=== PATIENT | male | born 1960 | race Two or more races ===

== ENCOUNTER 2018-11-17 17:39 | Emergency (ER) | payer MEDICAID, OTHER ==
[~2018-11-17] VITALS: Ht 170.2 cm; Wt 85.3 kg
[2018-11-17 17:56] VITALS: BP 130/86
[2018-11-17] MEDS ORDERED: LIDOCAINE W/ EPINEPHRINE 2% INJ 20ML VIAL IJ ONE (19:00)
[2018-11-17] MEDS ORDERED: TETANUS-DIPTH-ACEL PERTUSSIS 0.5ML SYRG IM ONE (19:00)
[2018-11-17] MEDS ORDERED: cefTRIAXone SOD 1,000 MG VL IM ONE (19:00)
== END 2018-11-17 19:32 | disposition home or self-care (01) ==
LOC: ER 17:39
DX: S81.011A Laceration without foreign body, right knee, initial encounter (principal); W26.0XXA Contact with knife, initial encounter; Y93.89 Activity, other specified; Y99.8 Other external cause status; Y92.89 Other specified places as the place of occurrence of the external cause
CPT/HCPCS: 12004; 90471; 90715; 96372; 99283; J0696

== ENCOUNTER 2018-12-07 11:26 | Emergency (ER) | payer MEDICAID ==
[~2018-12-07] VITALS: Ht 172.7 cm; Wt 85.3 kg
[2018-12-07 12:18] VITALS: BP 148/89
== END 2018-12-07 12:33 | disposition home or self-care (01) ==
LOC: ER 11:28
DX: S71.111D Laceration without foreign body, right thigh, subsequent encounter (principal); Z48.02 Encounter for removal of sutures; X58.XXXD Exposure to other specified factors, subsequent encounter

== ENCOUNTER → 2023-11-04 | Outpatient (CLI) | payer MEDICAID ==
[~2023-11-04] VITALS: Ht 170.2 cm; Wt 87.1 kg
[2023-11-04] MEDS: ADENOSINE 73 MG in GIVE UN-DILUTED 0 ML IV ONE (09:10)
== END | disposition home or self-care (01) ==
LOC: XY 07:07
PROVIDERS: ATTEND Internal Medicine
DX: Z01.810 Encounter for preprocedural cardiovascular examination (principal); I10 Essential (primary) hypertension; R07.9 Chest pain, unspecified
CPT/HCPCS: 78452; 93017; A9500; J0153

== ENCOUNTER 2024-11-29 17:30 | Emergency (ER) | payer MEDICAID ==
[~2024-11-29] VITALS: Ht 170.2 cm; Wt 87.5 kg
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
[2024-11-29] MEDS: KETOROLAC TROMETH 60MG/2ML VIAL IM ONE (18:56)
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
[2024-11-29] MEDS ORDERED: METH-1181 PO (19:30)
[2024-11-29] MEDS ORDERED: METH4PAK PO (19:30)
[2024-11-29 20:10] VITALS: BP 151/71; PULSE 77; RESP 18; TEMP 98.3; O2SAT 96
== END 2024-11-29 20:13 | disposition home or self-care (01) ==
LOC: ER 17:30
DX: S13.4XXA Sprain of ligaments of cervical spine, initial encounter (principal); R93.89 Abnormal findings on diagnostic imaging of other specified body structures; Z79.899 Other long term (current) drug therapy; V89.2XXA Person injured in unspecified motor-vehicle accident, traffic, initial encounter; Y93.89 Activity, other specified; Y92.488 Other paved roadways as the place of occurrence of the external cause; Y99.8 Other external cause status
CPT/HCPCS: 72125; 96372; 99285; J1100; J1885